=== PATIENT | female | born 1965 | race Caucasian/White ===

== ENCOUNTER 2016-10-09 22:22 | Emergency (ER) | payer BC ==
[2016-10-09 22:30] VITALS: BP 127/57; PULSE 71; RESP 16; TEMP 97.5; O2SAT 97
--- NOTE | 2016-10-09 22:48 | EDPHY ---
H & P Time Seen by Provider: 10/09/16 22:33 HPI/ROS: CHIEF COMPLAINT: Head laceration HISTORY OF PRESENT ILLNESS: This 51-year-old female presenting to the emergency department with head laceration. Patient states she was at [employer] around noon today ran into a metal shelf hitting the right side of her head denies any LOC no dizziness no lightheadedness. Patient states she went home cleaned the wound took a shower, patient states was not aware of how about the laceration was until family member looked at it. Needs tetanus vaccine. REVIEW OF SYSTEMS: Constitutional: No fever, no chills. Eyes: No discharge. No blurred vision ENT: No sore throat. Cardiovascular: No chest pain, no palpitations. Respiratory: No cough, no shortness of breath. Gastrointestinal: No abdominal pain, no vomiting. Genitourinary: No hematuria. Musculoskeletal: No back pain. Skin: No rashes. Right parietal scalp laceration Neurological: No headache. Smoking Status: Never smoked Physical Exam: General Appearance: Alert, no distress. Head/Eyes: Normocephalic. 7.5 cm right parietal scalp flap half stacy laceration. Pupils equal and round no pallor or injection. ENT, Mouth: Mucous membranes moist. Respiratory: There are no retractions, lungs are clear to auscultation. Cardiovascular: Regular rate and rhythm. Gastrointestinal: Abdomen is soft and nontender, no masses, bowel sounds normal. Neurological: No focal deficits. Answering questions appropriately Skin: Warm and dry, no rashes. Musculoskeletal: Vertebral cervical spine nontender on palpation full range of motion Extremities: symmetrical, full range of motion. Psychiatric: Patient is oriented X 3, acting appropriately Constitutional: Initial Vital Signs Temperature (C) 36.4 C 10/09/16 22:27 Heart Rate 71 10/09/16 22:27 Respiratory Rate 16 10/09/16 22:27 Blood Pressure 127/57 H 10/09/16 22:27 O2 Sat (%) 97 10/09/16 22:27 O2 Delivery Mode Room Air Allergies/Adverse Reactions: No Known Allergies Allergy (Unverified 10/09/16 22:26) Home Medications: Medication Instructions Recorded Gabapentin 10/09/16 Seroquel 10/09/16 Medical Decision Making Procedures: Procedure: Laceration repair. Verbal consent was obtained from the patient. 7.5cm laceration on the right parietal with flap half stacy shaped. 0.5% bupivacaine with epi 5ml. The wound was irrigated. There were no deep structures involved. The wound was repaired lianne #[id number] placed. The procedure was performed by myself. A dressing was applied by our EMT. ED Course/Re-evaluation: Discussed ED plan of care: Wound irrigation, wound repair, tetanus vaccine Differential Diagnosis: Other differential diagnosis considered but not limited to AMS, syncope, subarachnoid hemorrhage, concussion - Data Points Medications Given: Discontinued Medications Diphtheria/Tetanus/Acell Pertussis (Boostrix) 0.5 ml IM .ONCE ONE Stop: 10/09/16 22:50 Last Admin: 10/09/16 22:55 Dose: 0.5 ml Departure - Departure Disposition: Home, Routine, Self-Care Clinical Impression: Laceration Condition: Good Instructions: Laceration (ED), Staple Care (ED) Additional Instructions: 1. Have lianne removed in 10 days 2. You can take ibuprofen 600 mg every 6-8 hours as needed 3. Ice pack 15 minutes several times a day to area as needed to decrease any swelling Referrals: NONE *PRIMARY CARE P,. [Primary Care Provider] - As per Instructions [facility],. [Clinic] - As per Instructions
[2016-10-09] MEDS ORDERED: TDAP ADULT 0.5 ML INJ (BOOSTRIX) IM ONE (22:49)
== END 2016-10-09 23:22 | disposition home or self-care (01) ==
PROC: 3E0234Z Introduction of Serum, Toxoid and Vaccine into Muscle, Percutaneous Approach (ICD-10-PCS; principal; 2016-10-09)
PROC: 0HQ0XZZ Repair Scalp Skin, External Approach (ICD-10-PCS; principal; 2016-10-09)
DX: S01.01XA Laceration without foreign body of scalp, initial encounter (principal); Z23 Encounter for immunization; W22.8XXA Striking against or struck by other objects, initial encounter; Y99.8 Other external cause status; Y93.02 Activity, running